=== PATIENT | female | born 1945 | race Caucasian/White ===

== ENCOUNTER 2023-11-06 15:49 | Outpatient (RCR) | payer OTHER, SELFPAY | END 2023-11-06 23:59 | disposition home or self-care (01) | LOC: ROT 15:49 | PROVIDERS: ATTENDING PHYSICIAN Psychiatry & Neurology Neurology; FAMILY PHYSICIAN Internal Medicine | DX: R41.3 Other amnesia (principal) | CPT/HCPCS: 97530; 97537 ==

== ENCOUNTER → 2024-07-09 11:01 | Outpatient (REF) | payer OTHER, SELFPAY ==
[2024-07-09 11:44] LABS: % Basophils 0.8 % (0-2); % Eosinophils 1.6 % (0-6); % Immature Granulocytes 0.2 % (0-0.5); % Lymphocytes 39.7 % (20.5-51.1); % Monocytes 8.3 % (1.7-9.3); % Neutrophils 49.4 % (42.2-75.2); Absolute Eosinophils 0.1 10^3/uL (0-0.7); Absolute Monocytes 0.4 10^3/uL (0.1-0.6); Absolute Neutrophils 2.5 10^3/uL (1.4-6.5); Hematocrit 36.7 % (37.0-47.0); Hemoglobin 12.3 g/dL (12.0-16.0); Mean Corp Hgb Conc. 33.5 g/dL (33.0-37.0); Mean Corpuscular Hgb 30.8 pg (27.0-31.0); Mean Platelet Volume 9.9 fL (7.4-10.4); Nucleated Red Blood Cells % 0 %; Platelet Count 240 10^3/uL (130-400); Red Blood Cell Count 3.99 10^6/uL (4.20-5.40); Red Cell Dist. Width 13.1 % (11.5-14.5)
[2024-07-09 12:15] LABS: ALT (SGPT) 17 U/L (0-35); AST (SGOT) 31 U/L (14-36); Albumin 4.3 g/dl (3.5-5.0); Alkaline Phosphatase 64 U/L (38-126); Blood Urea Nitrogen 20 mg/dl (7-17); Calcium 9.5 mg/dl (8.4-10.2); Carbon Dioxide 29 mmol/L (22-30); Chloride 103 mmol/L (98-107); Glucose 87 mg/dl (70-99); HDL Cholesterol 96 mg/dl; LDL Cholesterol, Calculated 116 mg/dl; Sodium 138 mmol/L (135-145); Total Bilirubin 0.7 mg/dl (0.2-1.3); Total Cholesterol 229 mg/dl (50-199); Total Protein 6.6 g/dl (6.3-8.2); Triglyceride 88 mg/dl (10-149); Very Low Density Lipoprotein 17 mg/dl (0-30); eGFR > 60.00
[2024-07-09 12:40] LABS: TSH 2.17 uIU/ml (0.47-4.68)
[2024-07-09 14:36] LABS: Glycohemoglobin (HgbA1c) 5.1 % (4.0-5.6)
== END ==
LOC: REG 11:01
PROVIDERS: ATTENDING PHYSICIAN Nurse Practitioner
DX: Z00.00 Encounter for general adult medical examination without abnormal findings (principal); R73.01 Impaired fasting glucose; R53.83 Other fatigue; E78.5 Hyperlipidemia, unspecified
CPT/HCPCS: 36415; 80053; 80061; 83036; 84443; 85025

== ENCOUNTER → 2025-08-27 15:49 | Outpatient (REF) | payer OTHER, SELFPAY | LOC: RAD 15:49 | PROVIDERS: ATTENDING PHYSICIAN Specialist; FAMILY PHYSICIAN Hospitalist | DX: G30.1 Alzheimer's disease with late onset (principal) | CPT/HCPCS: 70450 ==